=== PATIENT | male | born 1950 | race Caucasian/White ===

== ENCOUNTER 2016-12-31 19:38 | Emergency (ER) | payer MEDICARE, OTHER ==
[~2016-12-31] VITALS: Ht 185.4 cm; Wt 136.6 kg
[2016-12-31] MEDS ORDERED: CYCLOBENZAPRINE 10 MG TAB PO ONE (21:30)
[2016-12-31] MEDS ORDERED: IBUPROFEN 800 MG TAB PO ONE (21:30)
[2016-12-31] MEDS ORDERED: CYCL10TA PO (22:22)
[2016-12-31] MEDS ORDERED: NAPR500T PO (22:22)
--- NOTE | 2016-12-31 22:27 | REP ---
Clinical: Chest and mid back pain . Comparison: None . Technique: PA and lateral. Findings: The mediastinum and cardiac silhouette are normal. The lung curtis are clear and without acute consolidation, effusion, or pneumothorax. The skeletal structures are intact and normal. Impression: 1. No acute cardiopulmonary process. Signed by Denis Hayes MD 12/31/2016 10:19 P
[2016-12-31 22:30] VITALS: BP 130/83
--- NOTE | 2017-01-01 09:43 | ECGEPIP ---
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 Order Number: [id number] Reading MD: Liss Gonzalez Measurements Intervals [place] Rate: 74 P: 15 VT: 163 QRS: 42 QRSD: 93 T: 45 QT: 363 QTc: 404 Interpretive Statements SINUS RHYTHM POSSIBLE LEFT ATRIAL ENLARGEMENT NO PRIOR FOR COMPARISON Electronically Signed On 01-01-2017 9:43:22 EDT by Liss Gonzalez
== END 2016-12-31 22:33 | disposition home or self-care (01) ==
LOC: M ED 19:38
DX: M40.204 Unspecified kyphosis, thoracic region (principal); M62.830 Muscle spasm of back; S23.3XXA Sprain of ligaments of thoracic spine, initial encounter; X58.XXXA Exposure to other specified factors, initial encounter; Y92.89 Other specified places as the place of occurrence of the external cause; Y93.89 Activity, other specified; Y99.8 Other external cause status

== ENCOUNTER 2017-06-28 08:01 | Day surgery (SDC) | payer MEDICARE, OTHER ==
[~2017-06-28 08:01] MED LIST: PROPOFOL 200 MG/20 ML VIAL As Ordered
[2017-06-28] MEDS: NS 1,000 ML IV (08:35)
[2017-06-28] MEDS ORDERED: PROPOFOL 200 MG/20 ML VIAL As Ordered (10:06)
== END 2017-06-28 10:26 | disposition home or self-care (01) ==
LOC: M OPP 08:01
DX: Z12.11 Encounter for screening for malignant neoplasm of colon (principal); Z86.010 Personal history of colon polyps; D12.5 Benign neoplasm of sigmoid colon; D12.2 Benign neoplasm of ascending colon; K57.30 Diverticulosis of large intestine without perforation or abscess without bleeding; K64.8 Other hemorrhoids; I10 Essential (primary) hypertension; Z79.899 Other long term (current) drug therapy; Z80.0 Family history of malignant neoplasm of digestive organs
CPT/HCPCS: 45385

== ENCOUNTER 2017-11-04 10:37 | Emergency (ER) | payer MEDICARE, OTHER ==
[2017-11-04] MEDS: ADACEL/BOOSTRIX VACCINE (DIPHTH/PERTUSS/ACELL/TETANUS)0.5ML SYR (90715) IM (11:44)
[2017-11-04] MEDS: LIDOCAINE 1% MDV 20ML VIAL SC (12:00)
[2017-11-04] MEDS: ceFAZolin SOD 1 GM in D5W MINI-BAG PLUS 50 ML IV (12:00)
[2017-11-04] MEDS: MORPHINE 4 MG/ML 1ML VIAL/SYRINGE (J2270) IV (12:09)
== END 2017-11-04 13:05 | disposition home or self-care (01) ==
LOC: M ED 10:37
DX: S41.141A Puncture wound with foreign body of right upper arm, initial encounter (principal); W29.4XXA Contact with nail gun, initial encounter; Y92.89 Other specified places as the place of occurrence of the external cause; Z79.899 Other long term (current) drug therapy
CPT/HCPCS: J0690

== ENCOUNTER 2019-03-19 14:05 | Emergency (ER) | payer MEDICARE, OTHER ==
[~2019-03-19] VITALS: Ht 185.4 cm; Wt 148.9 kg
[~2019-03-19 14:05] MED LIST changes: +AUGM875T28 PO; +CYCL10TA PO; +METOPROLOL TART 25 MG TABLET PO ONE; +NAPR-837 PO; -PROPOFOL 200 MG/20 ML VIAL As Ordered; +VALS80TA PO; +VALSARTAN HCTZ
[2019-03-19] MEDS ORDERED: fish oil (14:17)
[2019-03-19] MEDS ORDERED: METO1TAB7 (14:17)
[2019-03-19 14:41] LABS: BASO % 0.4 % (0.0-1.0); EOS # 0.2 10^3/uL (0.0-0.5); EOS % 1.8 % (0.0-3.0); HEMATOCRIT 46.3 % (42.0-52.0); HEMOGLOBIN 14.5 g/dl (13.5-17.5); LYMPH # 1.1 10^3/uL (1.5-5.0); LYMPH % 13.3 % (24.0-44.0); MEAN CORPUSCULAR HEMOGLOBIN 30.3 pg (27.0-33.0); MEAN CORPUSCULAR HGB CONC 31.3 g/dl (32.0-36.5); MEAN CORPUSCULAR VOLUME 96.9 fl (80.0-96.0); MONO # 0.8 10^3/uL (0.0-0.8); MONO % 9.5 % (0.0-5.0); NEUTROPHILS # 6.3 10^3/uL (1.5-8.5); NEUTROPHILS % 74.5 % (36.0-66.0); PLATELET COUNT, AUTOMATED 192 10^3/uL (150-450); RED BLOOD COUNT 4.78 10^6/uL (4.30-6.10); WHITE BLOOD COUNT 8.4 10^3/uL (4.0-10.0)
--- NOTE | 2019-03-19 14:51 | REP ---
Single view chest: 03/19/2019. Indication: Chest pain. Comparison: 12/31/2016. Findings: The patient is rotated. Cardiomegaly is redemonstrated. Increased airspace and interstitial markings are present on the right particularly within the right lower lobe. There is no evidence of pleural effusion or pneumothorax. Impression: Patchy opacities within the right lung, particularly inferiorly concerning for infectious process, however, please correlate. PA and lateral views or CT are recommended for further evaluation. Electronically Signed by Douglas Gutierres DO 03/19/2019 02:43 P
[2019-03-19] MEDS ORDERED: METOPROLOL 5 MG/5 ML VIAL IV SCH (15:00)
[2019-03-19 15:02] VITALS: BP 139/101
[2019-03-19 15:05] LABS: BLOOD UREA NITROGEN 20 MG/DL (7-18); CARBON DIOXIDE LEVEL 28 MEQ/L (21-32); CHLORIDE LEVEL 108 MEQ/L (98-107); CPK CREATINE PHOSPHOKINASE 78 U/L (39-308); CREATININE FOR GFR 1.02 MG/DL (0.70-1.30); GLOMERULAR FILTRATION RATE > 60.0 (>42); GLUCOSE, FASTING 102 MG/DL (70-100); MAGNESIUM LEVEL 2.1 MG/DL (1.8-2.4); MB/CK RELATIVE INDEX 2.56 (< OR =4); POTASSIUM SERUM 4.5 MEQ/L (3.5-5.1); SODIUM LEVEL 143 MEQ/L (136-145); TROPONIN I < 0.02 NG/ML (< 0.10)
[2019-03-19 15:43] LABS: INR 1.14; PROTHROMBIN TIME 14.3 SECONDS (11.8-14.0)
[2019-03-19] MEDS ORDERED: LOPR1TAB6 PO (16:29)
[2019-03-19] MEDS ORDERED: XARE20TA PO (16:29)
[2019-03-19 17:10] VITALS: BP 114/71
[2019-03-19] MEDS ORDERED: RIVAROXABAN 20 MG TAB (XARELTO) PO ONE (17:15)
--- NOTE | 2019-03-19 18:35 | ECGEPIP ---
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
--- NOTE | 2019-03-20 07:22 | ED PDOC ---
Post-Departure Follow-Up dr sparks faxed formal report of cxr for fu Daja Saunders MD Mar 20, 2019 07:22
== END 2019-03-19 17:33 | disposition home or self-care (01) ==
LOC: M ED 14:05
DX: I48.92 Unspecified atrial flutter (principal)

== ENCOUNTER → 2019-04-09 | Outpatient (REF) | payer MEDICARE, OTHER ==
[~2019-04-09] MED LIST changes: +LOPR1TAB6 PO; +METO1TAB7; -METOPROLOL TART 25 MG TABLET PO ONE; +XARE20TA PO; +fish oil
== END ==
LOC: M LAB REF 14:24
PROVIDERS: ATTEND Registered Nurse
DX: I48.92 Unspecified atrial flutter (principal)

== ENCOUNTER → 2019-05-04 | Outpatient (REF) | payer MEDICARE, OTHER ==
[2019-05-04 19:18] LABS: CALCIUM LEVEL 9.1 MG/DL (8.8-10.2); CREATININE FOR GFR 1.77 MG/DL (0.70-1.30); DIGOXIN LEVEL 0.5 NG/ML (0.5-2.0); GLOMERULAR FILTRATION RATE 40.7 (>42); POTASSIUM SERUM 4.4 MEQ/L (3.5-5.1)
== END ==
LOC: M LABDRAW1 17:09
PROVIDERS: ATTEND Nurse Practitioner Family
DX: I48.4 Atypical atrial flutter (principal); R06.02 Shortness of breath

== ENCOUNTER 2019-05-28 06:07 | Day surgery (SDC) | payer MEDICARE, OTHER ==
[~2019-05-28] VITALS: Ht 185.4 cm; Wt 145.6 kg
[~2019-05-28 06:07] MED LIST changes: +FURO20TA2 PO; +LR 1,000 ML IV ONE; +TOPR50TA PO
[2019-05-28] MEDS ORDERED: propofoL 200 MG/20 ML VIAL As Ordered ONE (07:03)
[2019-05-28] MEDS ORDERED: LIDOCAINE 2% INJ 100 MG/5 ML SDV (FOR ANES.) As Ordered ONE (07:04)
[2019-05-28] MEDS ORDERED: ONDANSETRON 4MG/2ML VIAL (J2405) As Ordered ONE (07:04)
--- NOTE | 2019-05-28 07:42 | ECGEPIP ---
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
[2019-05-28 08:16] VITALS: BP 119/62
--- NOTE | 2019-05-28 12:31 | RO ---
DATE OF PROCEDURE: 05/28/2019 PROCEDURE: Cardioversion. DIAGNOSIS: Atrial fibrillation/flutter. SURGEON: Dr. Martine Trejo PICTURE ENGRAVER: None ANESTHESIA: Andrzej Ortega CRNA BRIEF HISTORY: Mr. Lacy is a 68-year-old man who has had persistent atrial flutter for approximately 2 months. He was rate controlled and anticoagulated, but still did not feel well and consequently we decided to proceed with DC cardioversion. The patient was seen on outpatient basis. I explained the nature of the procedure and its potential complications and outcomes and he did sign appropriate consent. We talked about the procedure again just before it was done and I explained the whole process again. DESCRIPTION OF PROCEDURE: The procedure was performed in the recovery room. The patient presented in fasting condition. Time out was taken. Defibrillator patches were applied in the typical position. After appropriate level of sedation was accomplished (he received a total of 100 mg of IV propofol), he was cardioverted with 200 joules of energy applied in a synchronized fashion. A single discharge led to resumption of sinus rhythm without post conversion pause. There was a brief desaturation after the procedure related to airway obstruction, but it resolved promptly with just application of oral airway. No additional complications were countered. 12-lead ECG confirmed the presence of sinus rhythm. PLAN: To discharge the patient home after brief observation. I will see him in the office next week. He will continue his chronic medication with the exception of reducing metoprolol from current 100 mg twice daily to 50 mg twice daily. MTDD
--- NOTE | 2019-05-28 16:28 | ECGEPIP ---
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
== END 2019-05-28 08:30 | disposition home or self-care (01) ==
LOC: M SDC 06:07
PROVIDERS: ATTEND Internal Medicine Cardiovascular Disease
DX: I48.92 Unspecified atrial flutter (principal); I34.2 Nonrheumatic mitral (valve) stenosis; I34.0 Nonrheumatic mitral (valve) insufficiency; I10 Essential (primary) hypertension; E66.01 Morbid (severe) obesity due to excess calories; Z68.41 Body mass index [BMI] 40.0-44.9, adult; Z79.899 Other long term (current) drug therapy; Z79.01 Long term (current) use of anticoagulants
CPT/HCPCS: 92960; 93005; J2405

== ENCOUNTER → 2020-08-26 | Outpatient (CLI) | payer MEDICARE, OTHER ==
[~2020-08-26] MED LIST changes: +CYCL-707 PO; -CYCL10TA PO; -LR 1,000 ML IV ONE
== END ==
LOC: M LABSMTC 10:18
PROVIDERS: ATTEND Pediatrics
DX: Z01.818 Encounter for other preprocedural examination (principal); Z20.822 Contact with and (suspected) exposure to COVID-19

== ENCOUNTER 2020-08-30 09:38 | Day surgery (SDC) | payer MEDICARE, OTHER ==
[~2020-08-30] VITALS: Ht 185.4 cm; Wt 158.7 kg
[~2020-08-30 09:38] MED LIST changes: +NS 1,000 ML IV ONE
--- NOTE | 2020-08-30 10:38 | ROOR ---
Patient Name: Victorino Lacy Procedure Date: 08/30/2020 10:11 AM Date of : 1950 Age: 70 Room: [facility] Gender: Male Note Status: Finalized Procedure: Colonoscopy Indications: High risk colon cancer surveillance: Personal history of colonic polyps Providers: Mike CANCHOLA MD Referring MD: Diana Lowery DO Requesting Provider: Medicines: Monitored Anesthesia Care Complications: No immediate complications. Procedure: Pre-Anesthesia Assessment: - The heart rate, respiratory rate, oxygen saturations, blood pressure, adequacy of pulmonary ventilation, and response to care were monitored throughout the procedure. The Colonoscope was introduced through the anus and advanced to the terminal ileum, with identification of the appendiceal orifice and IC valve. The colonoscopy was performed without difficulty. The patient tolerated the procedure well. The quality of the bowel preparation was good. Findings: The perianal and digital rectal examinations were normal. Five sessile polyps were found in the sigmoid colon, splenic flexure and ascending colon. The polyps were diminutive in size. These polyps were removed with a cold snare. Resection and retrieval were complete. Internal hemorrhoids were found during retroflexion. The hemorrhoids were moderate. The exam was otherwise without abnormality on direct and retroflexion views. Impression: - Five diminutive polyps in the sigmoid colon, at the splenic flexure and in the ascending colon, removed with a cold snare. Resected and retrieved. - Internal hemorrhoids. - The examination was otherwise normal on direct and retroflexion views. Recommendation: - Repeat colonoscopy in 3 - 5 years for surveillance. - Telephone endoscopist for pathology results in 2 weeks. - Resume Xarelto (rivaroxaban) at prior dose tomorrow. Procedure Code(s): --- Professional --- 50024, Colonoscopy, flexible; with removal of tumor(s), polyp(s), or other lesion(s) by snare technique Diagnosis Code(s): --- Professional --- K64.8, Other hemorrhoids K63.5, Polyp of colon Z86.010, Personal history of colonic polyps CPT copyright 2019 [employer]. All rights reserved. The codes documented in this report are preliminary and upon supervisor decorating review may be revised to meet current compliance requirements. Mike Canchola MD Mike CANCHOLA MD 08/30/2020 10:38:12 AM Electronically signed by Mike CANCHOLA MD Number of Addenda: 0 Note Initiated On: 08/30/2020 10:11 AM Estimated Blood Loss: Estimated blood loss: none.
[2020-08-30 11:00] VITALS: BP 105/59
== END 2020-08-30 11:02 | disposition home or self-care (01) ==
LOC: M OPP 09:38
PROVIDERS: ATTEND Internal Medicine Gastroenterology
DX: Z12.11 Encounter for screening for malignant neoplasm of colon (principal); Z86.010 Personal history of colon polyps; K63.5 Polyp of colon; K64.8 Other hemorrhoids; I10 Essential (primary) hypertension; I48.91 Unspecified atrial fibrillation; Z79.899 Other long term (current) drug therapy

== ENCOUNTER 2021-06-23 17:21 | Emergency (ER) | payer MEDICARE, OTHER ==
[~2021-06-23] VITALS: Ht 185.4 cm; Wt 160.3 kg
[~2021-06-23 17:21] MED LIST changes: -NS 1,000 ML IV ONE
[2021-06-23] MEDS ORDERED: SPIR-10 (17:31)
[2021-06-23] MEDS ORDERED: METF850T4 (17:31)
[2021-06-23] MEDS ORDERED: ATOR1TAB21 (17:31)
[2021-06-23 18:21] LABS: HEMATOCRIT 51.2 % (42.0-52.0); HEMOGLOBIN 16.6 g/dl (13.5-17.5); MEAN CORPUSCULAR HEMOGLOBIN 31.2 pg (27.0-33.0); MEAN CORPUSCULAR HGB CONC 32.4 g/dl (32.0-36.5); MEAN CORPUSCULAR VOLUME 96.2 fl (80.0-96.0); PLATELET COUNT, AUTOMATED 153 10^3/uL (150-450); RED BLOOD COUNT 5.32 10^6/uL (4.30-6.10); WHITE BLOOD COUNT 8.2 10^3/uL (4.0-10.0)
[2021-06-23 18:48] LABS: BLOOD UREA NITROGEN 22 MG/DL (7-18); CARBON DIOXIDE LEVEL 30 MEQ/L (21-32); CHLORIDE LEVEL 105 MEQ/L (98-107); CREATININE FOR GFR 1.05 MG/DL (0.70-1.30); GLOMERULAR FILTRATION RATE > 60.0 (>42); GLUCOSE, FASTING 163 MG/DL (70-100); POTASSIUM SERUM 4.7 MEQ/L (3.5-5.1); SODIUM LEVEL 142 MEQ/L (136-145)
[2021-06-23 21:34] VITALS: BP 143/76
== END 2021-06-23 21:40 | disposition home or self-care (01) ==
LOC: M ED 17:21
DX: G44.209 Tension-type headache, unspecified, not intractable (principal); E11.9 Type 2 diabetes mellitus without complications; I10 Essential (primary) hypertension; E78.5 Hyperlipidemia, unspecified; Z79.899 Other long term (current) drug therapy; Z79.01 Long term (current) use of anticoagulants; Z79.84 Long term (current) use of oral hypoglycemic drugs; F17.210 Nicotine dependence, cigarettes, uncomplicated

== ENCOUNTER → 2022-03-02 | Outpatient (CLI) | payer MEDICARE, OTHER ==
[~2022-03-02] MED LIST changes: +ATOR1TAB21; +METF850T4; +SPIR-10
== END ==
LOC: M RAD 10:37
PROVIDERS: ATTEND Internal Medicine
DX: M79.605 Pain in left leg (principal)

== ENCOUNTER → 2022-05-23 | Outpatient (CLI) | payer MEDICARE, OTHER | LOC: M RAD 14:28 | PROVIDERS: ATTEND Internal Medicine | DX: M17.11 Unilateral primary osteoarthritis, right knee (principal); M25.561 Pain in right knee; M79.661 Pain in right lower leg ==

== ENCOUNTER → 2022-05-24 | Outpatient (CLI) | payer MEDICARE, OTHER | LOC: M RAD 12:29 | PROVIDERS: ATTEND Internal Medicine | DX: M79.89 Other specified soft tissue disorders (principal) ==

== ENCOUNTER → 2022-06-08 | Outpatient (CLI) | payer MEDICARE, OTHER ==
[2022-06-08 14:06] LABS: BLOOD UREA NITROGEN 25 MG/DL (9-23); CREATININE FOR GFR 1.04 MG/DL (0.70-1.30); GLOMERULAR FILTRATION RATE > 60.0 (>42)
== END ==
LOC: M LAB 13:08
PROVIDERS: ATTEND Orthopaedic Surgery
DX: S80.01XA Contusion of right knee, initial encounter (principal); X58.XXXA Exposure to other specified factors, initial encounter; Y92.9 Unspecified place or not applicable; Y93.9 Activity, unspecified; Y99.9 Unspecified external cause status

== ENCOUNTER → 2022-06-08 | Outpatient (CLI) | payer MEDICARE, OTHER | LOC: M RAD 13:10 | PROVIDERS: ATTEND Internal Medicine Critical Care Medicine | DX: I27.20 Pulmonary hypertension, unspecified (principal) | CPT/HCPCS: 71046; 78582; A9540; A9567 ==

== ENCOUNTER → 2022-07-03 | Outpatient (CLI) | payer MEDICARE, OTHER ==
[~2022-07-03] MED LIST changes: +PROHANCE 279.3MG/ML 15ML VIAL As Ordered ONE; +PROHANCE 279.3MG/ML 5ML VIAL As Ordered ONE
== END ==
LOC: M RAD 10:25
PROVIDERS: ATTEND Orthopaedic Surgery
DX: S80.01XA Contusion of right knee, initial encounter (principal); X58.XXXA Exposure to other specified factors, initial encounter; Y92.9 Unspecified place or not applicable
CPT/HCPCS: 73720; A9576

== ENCOUNTER → 2022-08-30 | Outpatient (CLI) | payer MEDICARE, OTHER ==
[~2022-08-30] MED LIST changes: -PROHANCE 279.3MG/ML 15ML VIAL As Ordered ONE; -PROHANCE 279.3MG/ML 5ML VIAL As Ordered ONE
== END ==
LOC: M CARPUL 13:15
PROVIDERS: ATTEND Internal Medicine Critical Care Medicine
DX: I05.0 Rheumatic mitral stenosis (principal); I70.0 Atherosclerosis of aorta

== ENCOUNTER → 2022-09-02 | Outpatient (CLI) | payer MEDICARE, OTHER | LOC: M SLEEP 20:00 | PROVIDERS: ATTEND Internal Medicine Critical Care Medicine | DX: G47.33 Obstructive sleep apnea (adult) (pediatric) (principal) ==

== ENCOUNTER → 2023-06-21 | Outpatient (CLI) | payer MEDICARE, OTHER | LOC: M PLAIMG 07:41 | PROVIDERS: ATTEND Internal Medicine Critical Care Medicine | DX: I05.0 Rheumatic mitral stenosis (principal) ==

== ENCOUNTER → 2023-09-10 | Outpatient (CLI) | payer MEDICARE, OTHER | LOC: M LAB 15:04 | PROVIDERS: ATTEND Internal Medicine Critical Care Medicine | DX: I27.20 Pulmonary hypertension, unspecified (principal); I50.30 Unspecified diastolic (congestive) heart failure ==

== ENCOUNTER 2024-06-01 10:09 | Inpatient (IN) | payer MEDICARE, OTHER ==
[~2024-06-01] VITALS: Ht 185.4 cm; Wt 152.5 kg
[~2024-06-01 10:09] MED LIST changes: -ATOR1TAB21; +ATOR1TAB21 PO; -METF850T4; +METF850T4 PO; -SPIR-10; +SPIR-10 PO
[2024-06-01 11:02] LABS: BASO % 0.4 % (0.0-1.0); EOS # 0.1 10^3/uL (0.0-0.5); EOS % 1.4 % (0.0-3.0); HEMOGLOBIN 15.7 g/dl (13.5-17.5); LYMPH % 11.2 % (24.0-44.0); MEAN CORPUSCULAR HEMOGLOBIN 32.4 pg (27.0-33.0); MEAN CORPUSCULAR HGB CONC 33.4 g/dl (32.0-36.5); MEAN CORPUSCULAR VOLUME 97.1 fl (80.0-96.0); MONO # 0.7 10^3/uL (0.0-0.8); NEUTROPHILS # 6.6 10^3/uL (1.5-8.5); NEUTROPHILS % 78.4 % (36.0-66.0); PLATELET COUNT, AUTOMATED 189 10^3/uL (150-450); RED BLOOD COUNT 4.84 10^6/uL (4.30-6.10); WHITE BLOOD COUNT 8.5 10^3/uL (4.0-10.0)
[2024-06-01 11:36] LABS: CK-MB VALUE MASS < 1.0 NG/ML (<3.6)
[2024-06-01 11:38] LABS: ALBUMIN 3.7 G/DL (3.2-5.2); ALKALINE PHOSPHATASE 56 U/L (40-129); ALT/SGPT 38 U/L (7.0-40); AST/SGOT 25 U/L (<34); BILIRUBIN,DIRECT 0.2 MG/DL (<0.4); BILIRUBIN,TOTAL 0.6 MG/DL (0.3-1.2); BLOOD UREA NITROGEN 18 MG/DL (9-23); CARBON DIOXIDE LEVEL 29 MMOL/L (20-31); CHLORIDE LEVEL 108 MMOL/L (98-107); CPK CREATINE PHOSPHOKINASE 42 U/L (46-171); CREATININE FOR GFR 1.16 MG/DL (0.70-1.30); GLOMERULAR FILTRATION RATE > 60.0 (>42); GLUCOSE, FASTING 115 MG/DL (74-106); MB/CK RELATIVE INDEX 2.38 (< OR =4); POTASSIUM SERUM 4.9 MMOL/L (3.5-5.1); SODIUM LEVEL 142 MMOL/L (136-145); TOTAL PROTEIN 7.1 G/DL (5.7-8.2)
[2024-06-01] MEDS: METOPROLOL TART 25 MG TABLET PO ONE (11:48)
[2024-06-01] MEDS: METOPROLOL 5 MG/5 ML VIAL IV SCH (11:49)
[2024-06-01] MEDS ORDERED: VITA100093 PO (11:53)
[2024-06-01] MEDS ORDERED: VITA100065 PO (11:53)
[2024-06-01] MEDS ORDERED: CIDA500T2 PO (11:53)
[2024-06-01] MEDS ORDERED: XARE20TA PO (11:54)
[2024-06-01] MEDS ORDERED: HOME MED LIST COMPLETE! XX SCH (11:55)
[2024-06-01] MEDS ORDERED: ISOVUE-370 76% 100ML VIAL As Ordered ONE (12:49)
[2024-06-01] MEDS: FUROSEMIDE 20MG/2ML VIAL IV ONE (15:11)
[2024-06-01] MEDS ORDERED: ACETAMINOPHEN 325 MG TAB PO PRN (16:15)
[2024-06-01] MEDS ORDERED: DEXTROSE 50% 50ML SYRINGE IV PRN (16:40)
[2024-06-01] MEDS ORDERED: GLUCOSE 4 GM CHEW PO PRN (16:40)
[2024-06-01] MEDS ORDERED: GLUCAGON INJ 1MG VIAL SC PRN (16:40)
[2024-06-01] MEDS: INSULIN LISPRO (NovoLOG) PER UNIT SC SCH ×2 (17:30→21:00)
[2024-06-01] MEDS: METOPROLOL TART 25 MG TABLET PO SCH (22:15)
[2024-06-02] VITALS (20 sets, daily range): BP systolic 100–116; BP diastolic 55–74; TEMP 97.5–98.3; O2SAT 87–95
[2024-06-02 08:47] LABS: HEMATOCRIT 44.4 % (42.0-52.0); HEMOGLOBIN 14.5 g/dl (13.5-17.5); MEAN CORPUSCULAR HEMOGLOBIN 31.9 pg (27.0-33.0); MEAN CORPUSCULAR HGB CONC 32.7 g/dl (32.0-36.5); MEAN CORPUSCULAR VOLUME 97.8 fl (80.0-96.0); PLATELET COUNT, AUTOMATED 173 10^3/uL (150-450); RED BLOOD COUNT 4.54 10^6/uL (4.30-6.10); WHITE BLOOD COUNT 7.3 10^3/uL (4.0-10.0)
[2024-06-02 09:16] LABS: BLOOD UREA NITROGEN 19 MG/DL (9-23); CALCIUM LEVEL 8.8 MG/DL (8.3-10.6); CARBON DIOXIDE LEVEL 34 MMOL/L (20-31); CHLORIDE LEVEL 105 MMOL/L (98-107); CREATININE FOR GFR 1.18 MG/DL (0.70-1.30); GLOMERULAR FILTRATION RATE > 60.0 (>42); GLUCOSE, FASTING 131 MG/DL (74-106); POTASSIUM SERUM 4.5 MMOL/L (3.5-5.1); SODIUM LEVEL 143 MMOL/L (136-145)
[2024-06-02 09:23] LABS: PROCALCITONIN 0.11 ng/ml
[2024-06-02] MEDS: SPIRONOLACTONE 25 MG TAB PO SCH (09:34)
[2024-06-02] MEDS: ATORVASTATIN 20 MG TAB PO SCH (09:34)
[2024-06-02] MEDS: RIVAROXABAN 20MG TAB (XARELTO) PO SCH (09:34)
[2024-06-02] MEDS: VITAMIN D 1,000 INTERNATIONAL UNITS TABLET PO SCH (09:34)
[2024-06-02] MEDS: FUROSEMIDE 20MG/2ML VIAL IV ONE (09:35)
[2024-06-02] MEDS: PREVNAR-20 VACCINE 0.5ML SYRINGE IM.IMMUN ONE (10:36)
[2024-06-03] VITALS (10 sets, daily range): BP systolic 79–129; BP diastolic 57–68; TEMP 97–97.8; O2SAT 88–98
[2024-06-03 05:45] LABS: HEMOGLOBIN 14.3 g/dl (13.5-17.5); MEAN CORPUSCULAR HEMOGLOBIN 32.2 pg (27.0-33.0); MEAN CORPUSCULAR HGB CONC 32.5 g/dl (32.0-36.5); MEAN CORPUSCULAR VOLUME 99.1 fl (80.0-96.0); PLATELET COUNT, AUTOMATED 161 10^3/uL (150-450); RED BLOOD COUNT 4.44 10^6/uL (4.30-6.10); WHITE BLOOD COUNT 7.4 10^3/uL (4.0-10.0)
[2024-06-03 06:12] LABS: BLOOD UREA NITROGEN 21 MG/DL (9-23); CALCIUM LEVEL 8.4 MG/DL (8.3-10.6); CARBON DIOXIDE LEVEL 34 MMOL/L (20-31); CHLORIDE LEVEL 102 MMOL/L (98-107); GLOMERULAR FILTRATION RATE > 60.0 (>42); GLUCOSE, FASTING 100 MG/DL (74-106); MAGNESIUM LEVEL 1.9 MG/DL (1.8-2.4); POTASSIUM SERUM 4.5 MMOL/L (3.5-5.1); SODIUM LEVEL 145 MMOL/L (136-145)
[2024-06-03] MEDS: METOPROLOL TART 25 MG TABLET PO SCH (06:25)
[2024-06-03] MEDS: FUROSEMIDE 20MG/2ML VIAL IV ONE (06:39)
[2024-06-03] MEDS ORDERED: LASI20TA3 PO (11:06)
[2024-06-03] MEDS ORDERED: TOPR50TA PO (11:06)
[2024-06-03 11:39] LABS: FREE T4 1.04 NG/DL (0.89-1.76); THYROID STIMULATING HORMONE 1.846 uIU/ML (0.55-4.78)
== END 2024-06-03 13:44 | disposition home or self-care (01) | DRG 308 ==
LOC: M ED 10:09 → M ED INP 16:14 → M PCU 06-02 05:25
PROVIDERS: ADMIT Student in an Organized Health Care Education/Training Program; ATTEND Internal Medicine
PROC: B246ZZZ Ultrasonography of Right and Left Heart (ICD-10-PCS; principal; 2024-06-02)
DX: I48.91 Unspecified atrial fibrillation (principal); I50.33 Acute on chronic diastolic (congestive) heart failure; Z68.41 Body mass index [BMI] 40.0-44.9, adult; E66.01 Morbid (severe) obesity due to excess calories; R73.03 Prediabetes; I05.0 Rheumatic mitral stenosis; E78.5 Hyperlipidemia, unspecified; Z90.49 Acquired absence of other specified parts of digestive tract; G47.33 Obstructive sleep apnea (adult) (pediatric); Z66 Do not resuscitate; Z79.01 Long term (current) use of anticoagulants; Z79.84 Long term (current) use of oral hypoglycemic drugs; Z79.899 Other long term (current) drug therapy

== ENCOUNTER → 2024-06-09 | Outpatient (REF) | payer MEDICARE, OTHER ==
[~2024-06-09] MED LIST changes: +CIDA500T2 PO; +LASI20TA3 PO; +VITA100065 PO; +VITA100093 PO
== END ==
LOC: M LAB REF 16:47
PROVIDERS: ATTEND Internal Medicine
DX: I50.32 Chronic diastolic (congestive) heart failure (principal); R06.02 Shortness of breath

== ENCOUNTER 2024-08-01 18:53 | Emergency (ER) | payer MEDICARE, OTHER ==
[~2024-08-01] VITALS: Ht 185.4 cm; Wt 140.9 kg
[2024-08-01] MEDS: ACETAMINOPHEN *IV* 1,000 MG in IV 1 EA IV ONE (22:18)
[2024-08-01 22:41] LABS: BASO % 0.2 % (0.0-1.0); EOS # 0.2 10^3/uL (0.0-0.5); EOS % 1.3 % (0.0-3.0); HEMATOCRIT 48.6 % (42.0-52.0); HEMOGLOBIN 16.5 g/dl (13.5-17.5); LYMPH # 1.5 10^3/uL (1.5-5.0); LYMPH % 11.3 % (24.0-44.0); MEAN CORPUSCULAR HEMOGLOBIN 31.7 pg (27.0-33.0); MEAN CORPUSCULAR VOLUME 93.5 fl (80.0-96.0); MONO # 1.3 10^3/uL (0.0-0.8); MONO % 10.2 % (2.0-8.0); NEUTROPHILS % 76.3 % (36.0-66.0); PLATELET COUNT, AUTOMATED 184 10^3/uL (150-450); WHITE BLOOD COUNT 13.1 10^3/uL (4.0-10.0)
[2024-08-01 22:54] LABS: PARTIAL THROMBOPLASTIN TIME 27.2 SECONDS (24.8-34.2); PROTHROMBIN TIME 13.5 SECONDS (12.5-14.5)
[2024-08-01 23:09] VITALS: TEMP 98.4
[2024-08-01 23:26] LABS: ALBUMIN 3.9 G/DL (3.2-5.2); ALKALINE PHOSPHATASE 61 U/L (40-129); ALT/SGPT 25 U/L (7.0-40); AST/SGOT 21 U/L (<34); BILIRUBIN,TOTAL 0.8 MG/DL (0.3-1.2); BLOOD UREA NITROGEN 22 MG/DL (9-23); CALCIUM LEVEL 9.5 MG/DL (8.3-10.6); CARBON DIOXIDE LEVEL 29 MMOL/L (20-31); CHLORIDE LEVEL 102 MMOL/L (98-107); CREATININE FOR GFR 1.15 MG/DL (0.70-1.30); GLOMERULAR FILTRATION RATE > 60.0 (>42); GLUCOSE, FASTING 124 MG/DL (74-106); POTASSIUM SERUM 4.8 MMOL/L (3.5-5.1); SODIUM LEVEL 140 MMOL/L (136-145); TOTAL PROTEIN 7.5 G/DL (5.7-8.2)
[2024-08-01] MEDS ORDERED: ISOVUE-370 76% 100ML VIAL As Ordered ONE (23:33)
[2024-08-02 00:17] VITALS: BP 97/53; O2SAT 97
[2024-08-02] MEDS ORDERED: MAPA500C PO (00:30)
== END 2024-08-02 01:09 | disposition home or self-care (01) ==
LOC: M ED 18:53
DX: M25.561 Pain in right knee (principal); E11.9 Type 2 diabetes mellitus without complications; I10 Essential (primary) hypertension; F17.210 Nicotine dependence, cigarettes, uncomplicated; F10.10 Alcohol abuse, uncomplicated; Z79.1 Long term (current) use of non-steroidal anti-inflammatories (NSAID); Z79.899 Other long term (current) drug therapy; Z79.01 Long term (current) use of anticoagulants; Z79.84 Long term (current) use of oral hypoglycemic drugs
CPT/HCPCS: 73564; 73706; 80053; 85025; 85610; 85730; 86850; 86900; 86901; 96365; 99284; J0131; Q9967